=== PATIENT | female | born 1930 | race Caucasian/White ===

== ENCOUNTER 2017-02-15 13:24 | Observation (INO) ==
[2017-02-15] MEDS ORDERED: *HR* Propofol 500 MG/50 ML BOTTLE IVP ONE ×2 (14:33→14:34)
[2017-02-15] MEDS ORDERED: 0.9 % Sodium Chloride 1,000 ML ONE (14:55)
--- NOTE | 2017-02-15 16:05 | Emergency Department Note ---
Disposition Clinical Impression: Hip dislocation, left Qualifiers: Encounter type: initial encounter Qualified Code(s): S73.005A - Unspecified dislocation of left hip, initial encounter Disposition: Admitted As Inpatient Condition: Good General Adult HPI - General Chief complaint: ED Extremity Injury, Lower Stated complaint: hip pain Time Seen by Provider: 02/15/17 13:27 Source: patient, EMS Limitations: no limitations Nursing Notes Reviewed: Yes Vital Signs Reviewed: Yes - History of Present Illness HPI Narrative: Patient here for evaluation of hip injury. Patient was bending over will try and picking supervisor an object when her left hip popped. She has had a previous hip dislocation and is concerned that it is out again. Patient's leg is shortened and internally rotated. Patient has sensation intact. DP pulse palpable on that side. Patient had this happen previously in October and according to the ER physician about this and who is in the emergency department was a very difficult reduction. After discussing with Dr. Godfrey. He would like us to try to reduce it in the emergency department. Anesthesia was called and propofol was given. Multiple attempts as well as multiple variations of techniques were used and were unsuccessful. The case was discussed Dr. Godfrey and his PA evaluated the patient. Patient will be taken to the OR for closed reduction. They request admission to the hospital service as she may need further monitoring and possible surgery. Pain Scale: 2 - Related Data Home Medications Medication Instructions Recorded Confirmed Amlodipine Besylate 10 mg PO DAILY 02/15/17 02/15/17 Ascorbate Calcium [Vitamin C] 1,000 mg PO DAILY 02/15/17 02/15/17 Aspirin Enteric Coated [Aspirin EC] 81 mg PO DAILY 02/15/17 02/15/17 Atorvastatin Calcium [Lipitor] 20 mg PO HS 02/15/17 02/15/17 Cholecalciferol (D-3) [Vitamin D] 1,000 unit PO DAILY 02/15/17 02/15/17 Cilostazol 50 mg PO BID 02/15/17 02/15/17 Cyanocobalamin (Vitamin B-12) 500 mcg PO DAILY 02/15/17 02/15/17 [Vitamin B-12] Enalapril Maleate [Vasotec] 20 mg PO BID 02/15/17 02/15/17 Loratadine [Claritin] 10 mg PO DAILY PRN 02/15/17 02/15/17 Metoprolol Succinate 200 mg PO DAILY 02/15/17 02/15/17 [place]-3 Acid Ethyl Esters [Lovaza] 2 gm PO BID 02/15/17 02/15/17 Saline Nasal [place] [[place] Nasal 2 spray NS BID PRN 02/15/17 02/15/17 [place]] Sitagliptin Phos/Metformin HCl 1 each PO BID 02/15/17 02/15/17 [Janumet 50-1,000 mg Tablet] hydroCHLOROthiazide 25 mg PO DAILY 02/15/17 02/15/17 [Hydrochlorothiazide] Allergies Allergy/AdvReac Type Severity Reaction Status Date / Time No Known Allergies Allergy Verified 11/02/16 16:07 Review of Systems: CONSTITUTIONAL: No weight loss, fever, chills, weakness or fatigue. HEENT: Eyes: No visual changes. Ears, Nose, Throat: No hearing loss, difficulty talking or unable to swallow. SKIN: No rash or itching. CARDIOVASCULAR: No chest pain, chest pressure or chest discomfort. No palpitations or edema. RESPIRATORY: No shortness of breath, cough or sputum. GASTROINTESTINAL: No anorexia, nausea, vomiting or diarrhea. No abdominal pain or blood. GENITOURINARY: No burning on urination or hematuria. NEUROLOGICAL: No headache, dizziness, syncope, paralysis, ataxia, numbness or tingling in the extremities. No change in bowel or bladder control. MUSCULOSKELETAL: Hip pain and deformity Past Medical History - Past Medical History Medical history: Reports: cancer, diabetes, hyperlipidemia, hypertension - Social History Smoking Status: Never smoker Alcohol use: Reports: none Drug use: Reports: none Physical Exam General appearance: NAD, conversant Eyes: anicteric sclerae, moist conjunctivae; PERRL HENT: Atraumatic; oropharynx clear with moist mucous membranes and no mucosal ulcerations Neck: Normal inspection; Trachea midline; FROM, supple Lungs: CTA, with normal respiratory effort and no intercostal retractions CV: RRR, no MRGs Abdomen: Soft, non-tender; no rebound or gaurding Extremities: Left hip is internally rotated and shortened. Neurovascularly intact distally. Skin: Normal temperature; no rash, ulcers or lesions Psych: Appropriate mood and affect Neuro: alert and oriented to person, place and time - General Limitations: no limitations General appearance: alert Course - Consultations Consultation #1: Dr. Godfrey would like to admit the patient to the hospital service and do a closed reduction of the hip in the OR. Consultation #2: Dr. Landaverde. Patient accepts for admission. Vital Signs Temperature 98.3 F 02/15/17 13:26 Pulse Rate 100 02/15/17 13:26 Respiratory Rate 18 02/15/17 13:26 Blood Pressure 147/80 02/15/17 13:26 O2 Sat by Pulse Oximetry 94 02/15/17 13:26 Temperature 98.3 F 02/15/17 13:26 Pulse Rate 98 02/15/17 16:59 Respiratory Rate 16 02/15/17 17:04 Blood Pressure 132/84 02/15/17 17:04 O2 Sat by Pulse Oximetry 92 02/15/17 16:59 Oxygen Delivery Oxygen Delivery [1525] Nasal Cannula Oxygen Delivery [1520] Nasal Cannula Oxygen Delivery [1518] Nasal Cannula Oxygen Delivery [1512] Nasal Cannula Oxygen Delivery [1510] Nasal Cannula Oxygen Delivery [1508] Nasal Cannula Oxygen Delivery [1504] Nasal Cannula Oxygen Delivery [1501] Nasal Cannula Oxygen Delivery [1459] Nasal Cannula Oxygen Delivery [1453] Non Rebreather Mask Oxygen Delivery Nasal Cannula Procedures - Orthopedic Joint Reduction Joint #1 Consent Obtained: written consent Time Out Performed: Yes Side: left Joint Reduction Location: hip ASA Classification: CLASS III-Severe systemic disease Analgesia: procedural sedation Shoulder Technique Used (if applicable): traction/counter-traction, other ( [place] Post-reduction neuro exam: intact Post-reduction vascular: intact Post Reduction X-Ray Obtained: Yes Post Reduction X-Ray Results: not reduced Splint Applied: No Patient Tolerated Procedure: well, other (Unsuccessful) Additional Comments: I was at the bedside the entire procedure time. Patient was given propofol for sedation purposes. I thought we were able to get it reduced at one point but the hip came out of the anatomical alignment again. She will be sent to the OR to have a closed reduction done in the operating room. She tolerated the procedure well otherwise here. Anesthesia was also at bedside for observation purposes as well. I also tried to reduce this left hip dislocation but was unsuccessful as well. - Procedural Sedation Indication: fracture/dislocation reduction Dietary Status: NPO 6 hours prior to procedure If known; time of last PO intake: 07:00 H&P (including ROS) documented in medical record: Yes Previous reaction to sedatives/anesthetics: No Dentition: No loose teeth or bridges, full dentition, poor dentition, dentures removed Possible difficult airway: Yes Difficult Airway; If yes,: Limited ability to open mouth, Macroglossia, History of Obstructive Sleep Apnea, Neck limited ROM, Morbid obesity, Enlarged neck circumference, short neck ASA Classification: CLASS III-Severe systemic disease Plan of Care: Pt appropriate candidate for procedure/moderate/conscious sedation , Risks/benefits of procedure/sedation discussed w/ patient/family, If not NPO; Risk of intake outweiged by necessity to perform procedure Preparation: deburring and tooling machine operator applied, pulse oximeter, capnometry used, supplemental O2 applied, reversal agents at bedside, suction/airway equipment at bedside, IV secured IV Propofol Dose (mgs): 120 (60 mg and then another 60 mg) Patient Tolerated Procedure: well, no complications Complications: none Interventions: oxygen applied Medical Decision Making - Lab Data Result diagrams: 02/15/17 16:21 02/15/17 16:21 Lab Results 02/15/17 02/15/17 02/15/17 Range/Units 16:21 16:21 16:37 WBC 12.9 H (4.3-11.1) K/mcL RBC 4.71 (3.82-4.97) M/mcL Hgb 14.1 (11.5-15.4) g/dL Hct 41.0 (35.3-44.9) % MCV 87.0 (83.0-100.0) fL MCH 29.9 (28.0-33.3) pg MCHC 34.4 (31.6-35.5) g/dL RDW 12.6 (11.5-14.5) % Plt Count 276 (140-400) K/mcL MPV 9.0 L (9.4-12.4) fL Immature Gran % 0.5 (0-4) % Seg Neutrophils % 81.5 % Lymphocytes % 11.5 % Monocytes % 6.0 % Eosinophils % 0.2 % Basophils % 0.3 % Neutrophils # 10.5 H (1.6-8.9) K/mcL Lymphocytes # 1.5 (0.6-4.6) K/mcL Monocytes # 0.8 (0.0-1.3) K/mcL Eosinophils # 0.0 (0.0-0.6) K/mcL Basophils # 0.0 (0.0-0.2) K/mcL Sodium 140 (136-145) mEq/L Potassium 3.1 L (3.5-4.5) mEq/L Chloride 102 (98-109) mEq/L Carbon Dioxide 26 (19-29) mEq/L BUN 18 (7-20) mg/dL Creatinine 0.84 (0.57-1.11) mg/dL Est GFR ( Amer) > 60 (> 60) Est GFR (Non-Af Amer) > 60 (> 60) BUN/Creatinine Ratio 21 (6-26) Glucose 149 H (70-99) mg/dL Calculated Osmolality 295 (280-300) Calcium 9.2 (8.6-10.8) mg/dL Urine Color Yellow (Yellow) Urine Clarity Clear (Clear) Urine pH 6.5 (5.0-8.0) pH Units Ur Specific [place] 1.016 (1.010-1.025) Urine Protein 100 H (Neg-Trace) mg/dL Urine Glucose (UA) 100 H (Normal) mg/dL Urine Ketones Trace H (Negative) mg/dL Urine Blood Small H (Negative) Urine Nitrite Negative (Negative) Urine Bilirubin Negative (Negative) Urine Urobilinogen Normal (Normal) mg/dL Ur Leukocyte Esterase Negative (Negative) Urine Microscopic RBC 5-15 H (0-3) per hpf Urine Microscopic WBC 0-3 (0-3) per hpf Ur Squamous Epith Cells None Seen (None-Few) per lpf Urine Bacteria None Seen (None-Few) per hpf Hyaline Casts None Seen (None-Few) per lpf Ur Culture Indicated? NO (NO) Attestation Statement - Attestation Attestation: I examined this patient and my medical decision-making was reviewed with the PROJECT CONTROL ANALYST/PA/Advanced Practice Nurse/Resident Physician. I agree with the documented findings, disposition and treatment plan as described except to the extent set forth below.
--- NOTE | 2017-02-15 16:17 | Orthopedic Consult Note ---
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 Discussed with , patient consented for a Left hip closed reduction today with . Consent was signed and discussed with patient and her daughter. Due to her previous hip dislocation in October, and lack of trauma or reported falls, risks of the hip not reducing were discussed. If further management is needed, we will further discuss with the patient and her family at a later time. Risks were discussed and reviewed with the patient and family. NPO, last meal was at 7AM CBC, Bmp needed. PT/INR. Plan to admit for observation. Qualifiers: Encounter type: initial encounter Qualified Code(s): T84.029A - Dislocation of unspecified internal joint prosthesis, initial encounter; Z96.649 - Presence of unspecified artificial hip joint History of Present Illness Chief complaint: Recurrent Left hip Dislocation HPI: Ms. Gallegos is a 86 year old female, seen and evaluted in ED. Reported to [facility] for Left hip pain. She states she was sitting on a chair, bent over and felt a pop in her Left hip. Past Med Surg Social Fam HX - Past Medical History Medical history: cancer, diabetes, hyperlipidemia, hypertension - Social History Smoking Status: Never smoker Alcohol use: none Drug use: none Medications and Allergies Allergies No Known Allergies Allergy (Verified 11/02/16 16:07) ROS unobtainable: other All Systems Reviewed: A 10-system review of systems was performed and is negative for pertinent findings except as documented above in the HPI. - Constitutional Constitutional: as per HPI, no fever(s), no frequent falls - Cardiovascular Cardiovascular: as per HPI, no chest pain, no syncope - Respiratory Respiratory: as per HPI, no cough, no dyspnea, no wheezing - Musculoskeletal Musculoskeletal: as per HPI, abnormal gait, limited range of motion, no numbness , no tingling Physical Exam - Constitutional Vitals: Temp Pulse Resp BP Pulse Ox 98.3 F 95 16 122/58 97 02/15/17 13:26 02/15/17 15:57 02/15/17 15:57 02/15/17 15:57 02/15/17 15:57 - Hip left Gait: other (unable to WB; LLE appears shorted and IR) Tenderness with palpation: anterior, posterior ROM: extension: abnormal ROM: flexion: abnormal ROM: abduction: abnormal ROM: adduction: abnormal ROM: internal rotation: abnormal ROM: external rotation: abnormal Results - Labs Labs: All other labs normal. - Diagnostic results Hip x-ray: report reviewed, image reviewed Hip AP/Lateral x-ray: report reviewed, image reviewed Consult Discharge Plan - Plan Referrals: Winnie Holden DO [Primary Care Provider] -
--- NOTE | 2017-02-15 16:31 | Internal Med History&Physical ---
Date of Encounter: 02/16/17 Time of Encounter: 16:29 Assessment and Plan (1) Recurrent dislocation of hip joint prosthesis Current visit: Yes Status: Acute recurrent dislocation to be surgically corrected by DR. Godfrey will follow post op. unsuccessful attempt for correction at ED. Qualifiers: Encounter type: initial encounter Qualified Code(s): T84.029A - Dislocation of unspecified internal joint prosthesis, initial encounter; Z96.649 - Presence of unspecified artificial hip joint (2) HTN (hypertension) Current visit: Yes Status: Acute BP stable, will conitnue home meds Qualifiers: Hypertension type: essential hypertension Qualified Code(s): I10 - Essential (primary) hypertension (3) Diabetes Current visit: Yes Status: Acute will start on sliding scale for today. will hold all oral anti hypoglycemics and not start long acting insulin for now. monitor fsg Qualifiers: Qualified Code(s): E11.9 - Type 2 diabetes mellitus without complications (4) Hyperlipidemia Current visit: Yes Status: Acute continue home meds Qualifiers: Hyperlipidemia type: unspecified Qualified Code(s): E78.5 - Hyperlipidemia , unspecified Internal Medicine - H&P: HPI Chief complaint: hip fracture Admitted From: Home Plans for Post Hospital Care: Transfer Inp Rehab Fac History of present illness: Ms. Gallegos is a 86 year old female wth PMH of HTN, DM and HLD. Patient here for evaluation of hip injury. Patient was bending over to try and excelsior picker an object when her left hip popped. She has had a previous hip dislocation . Patient's leg is shortened and internally rotated. Patient has sensation intact. Patient had this happen previously in October. After discussing with Dr. Godfrey, they tried to reduce it in the emergency department. Multiple attempts as well as multiple variations of techniques were used and were unsuccessful. The case was discussed Dr. Godfrey and his PA evaluated the patient. Patient will be taken to the OR for closed reduction. They request admission to the hospital service as she may need further monitoring and possible surgery. at the time of my assesment, faith denies much pain. Past Med Surg Social Fam HX - Past Medical History Medical history: cancer, diabetes, hyperlipidemia, hypertension - Social History Smoking Status: Never smoker Alcohol use: none Drug use: none Internal Medicine - H&P: Meds Amlodipine Besylate 10 mg PO DAILY 02/15/17 [History] Ascorbate Calcium [Vitamin C] 1,000 mg PO DAILY 02/15/17 [History] Aspirin Enteric Coated [Aspirin EC] 81 mg PO DAILY 02/15/17 [History] Atorvastatin Calcium [Lipitor] 20 mg PO HS 02/15/17 [History] Cholecalciferol (D-3) [Vitamin D] 1,000 unit PO DAILY 02/15/17 [History] Cilostazol 50 mg PO BID 02/15/17 [History] Cyanocobalamin (Vitamin B-12) [Vitamin B-12] 500 mcg PO DAILY 02/15/17 [History] Enalapril Maleate [Vasotec] 20 mg PO BID 02/15/17 [History] Loratadine [Claritin] 10 mg PO DAILY PRN 02/15/17 [History] Metoprolol Succinate 200 mg PO DAILY 02/15/17 [History] [place]-3 Acid Ethyl Esters [Lovaza] 2 gm PO BID 02/15/17 [History] Saline Nasal [place] [[place] Nasal [place]] 2 spray NS BID PRN 02/15/17 [History] Sitagliptin Phos/Metformin HCl [Janumet 50-1,000 mg Tablet] 1 each PO BID [History] hydroCHLOROthiazide [Hydrochlorothiazide] 25 mg PO DAILY 02/15/17 [History] Allergies No Known Allergies Allergy (Verified 11/02/16 16:07) All Systems PM: A 10-system review of systems was performed and is negative for pertinent findings except as documented above in the HPI. - Constitutional Constitutional: no chills, no fever(s), no night sweats - EENT Eyes: no change in vision, no discharge, no pain, no photophobia Ears: no ear discharge, no ear pain, no tinnitus Nose, mouth and throat: no dysphagia, no nasal discharge, no neck pain, no sore throat - Cardiovascular Cardiovascular ROS IM: no chest pain, no diaphoresis, no dyspnea, no lightheadedness, no palpitations, no syncope - Respiratory Respiratory: no cough, no dyspnea, no wheezing, no excessive phlegm production - Gastrointestinal Gastrointestinal: no abdominal pain, no diarrhea, no hematemesis, no hematochezia, no melena, no nausea, no vomiting - Constitutional Vitals: Temp Pulse Resp BP Pulse Ox 98.3 F 95 16 122/58 97 02/15/17 13:26 02/15/17 15:57 02/15/17 15:57 02/15/17 15:57 02/15/17 15:57 General appearance: Present: A&O X 3, no acute distress Exam: exam could not be completed as patient was being wheeled down to surgery Internal Med - H&P Results - Labs CBC & Chem 7: 02/16/17 08:30 02/16/17 08:30 - Impressions ITS Impressions Hip X-Ray 02/15/17 13:31 IMPRESSION: Dislocation of the left hip arthroplasty D/ / Bull Ontiveros MD / Bull Ontivreos MD Interpreting Provider: Bull Ontiveros MD Hip X-Ray 02/15/17 15:31 IMPRESSION: Unchanged dislocation. D/ / Bull Ontiveros MD / Bull Ontiveros MD Interpreting Provider: Bull Ontiveros MD
[2017-02-15 16:39] LABS: Basophils % 0.3 %; Eosinophils % 0.2 %; Hemoglobin 14.1 g/dL (11.5-15.4); Immature Granulocytes % 0.5 % (0-4); Lymphocytes # 1.5 K/mcL (0.6-4.6); Lymphocytes % 11.5 %; Mean Corpuscular HGB Conc 34.4 g/dL (31.6-35.5); Mean Corpuscular Hemoglobin 29.9 pg (28.0-33.3); Monocytes # 0.8 K/mcL (0.0-1.3); Neutrophils # 10.5 K/mcL (1.6-8.9); Platelet Count 276 K/mcL (140-400); Red Blood Count 4.71 M/mcL (3.82-4.97); Red Cell Distribution Width 12.6 % (11.5-14.5); Segmented Neutrophils % 81.5 %
[2017-02-15] MEDS ORDERED: Naloxone 0.4 MG/ML INJ IVP PRN ×2 (16:47→18:58)
[2017-02-15] MEDS ORDERED: *HR* Morphine 2 MG/ML SYRINGE IVP PRN ×2 (16:47→18:58)
[2017-02-15] MEDS ORDERED: Ketorolac 30 MG/ML VIAL IVP PRN ×2 (16:47→18:58)
[2017-02-15 16:50] LABS: Bilirubin,Urine Negative (Negative); Blood,Urine Small (Negative); Clarity,Urine Clear (Clear); Color,Urine Yellow (Yellow); Glucose,Urine (UA) 100 mg/dL (Normal); Ketones,Urine Trace mg/dL (Negative); Leukocyte Esterase,Urine Negative (Negative); Nitrite,Urine Negative (Negative); PH,Urine 6.5 pH Units (5.0-8.0); Protein,Urine 100 mg/dL (Neg-Trace); Specific Gravity,Urine 1.016 (1.010-1.025); Urobilinogen,Urine Normal (Normal)
[2017-02-15] MEDS ORDERED: D5% in Water 1,000 ML IVC PRN ×2 (16:50→18:58)
[2017-02-15] MEDS ORDERED: *HR* Dextrose 50 % in Water (Syg) 50 ML SYRINGE IVP PRN ×2 (16:50→18:58)
[2017-02-15] MEDS ORDERED: Dextrose Gel 15 GM PO PRN ×4 (16:50→18:58)
[2017-02-15 16:52] LABS: Bacteria,Urine None Seen per hpf (None-Few); Hyaline Casts,Urine None Seen per lpf (None-Few); Squamous Epithelial Cell,Urine None Seen per lpf (None-Few); WBC,Urine 0-3 per hpf (0-3)
[2017-02-15 16:53] LABS: BUN/Creatinine Ratio 21 (6-26); Blood Urea Nitrogen 18 mg/dL (7-20); Calcium 9.2 mg/dL (8.6-10.8); Carbon Dioxide 26 mEq/L (19-29); Chloride 102 mEq/L (98-109); Glucose 149 mg/dL (70-99); Osmolality,Calculated 295 (280-300); Potassium 3.1 mEq/L (3.5-4.5); Sodium 140 mEq/L (136-145); eGFR For African Americans > 60 (> 60); eGFR For Non-African Americans > 60 (> 60)
--- NOTE | 2017-02-15 16:58 | Anesthesia Evaluation PreOp ---
Date of Encounter: 02/15/17 Time of Encounter: 16:56 - Past History Planned Operation: l hip closed redn Cardiac History: HTN, Hyperlipidemia Pulmonary History: DENIZ Dx CASH APPLICATIONS CLERK History: Denies Any Significant HX Other Medical History: Diabetes Type II, Other (h/o breast ca) Anesthesia History: No Prior Anesthetic Complications, Past Anesthesia (appy, l mastectomy) Alcohol Use: none Drug use: none Medications and Allergies Amlodipine Besylate 10 mg PO DAILY 02/15/17 [History] Ascorbate Calcium [Vitamin C] 1,000 mg PO DAILY 02/15/17 [History] Aspirin Enteric Coated [Aspirin EC] 81 mg PO DAILY 02/15/17 [History] Atorvastatin Calcium [Lipitor] 20 mg PO HS 02/15/17 [History] Cholecalciferol (D-3) [Vitamin D] 1,000 unit PO DAILY 02/15/17 [History] Cilostazol 50 mg PO BID 02/15/17 [History] Cyanocobalamin (Vitamin B-12) [Vitamin B-12] 500 mcg PO DAILY 02/15/17 [History] Enalapril Maleate [Vasotec] 20 mg PO BID 02/15/17 [History] Loratadine [Claritin] 10 mg PO DAILY PRN 02/15/17 [History] Metoprolol Succinate 200 mg PO DAILY 02/15/17 [History] [place]-3 Acid Ethyl Esters [Lovaza] 2 gm PO BID 02/15/17 [History] Saline Nasal [place] [[place] Nasal [place]] 2 spray NS BID PRN 02/15/17 [History] Sitagliptin Phos/Metformin HCl [Janumet 50-1,000 mg Tablet] 1 each PO BID [History] hydroCHLOROthiazide [Hydrochlorothiazide] 25 mg PO DAILY 02/15/17 [History] Allergies No Known Allergies Allergy (Verified 11/02/16 16:07) - Meds/Allergy Pre-op Review Medications Reviewed: Yes Allergies Reviewed: Yes Beta Blockers on Current Med List: Yes If Beta Blockers taken, Date/Time (Last Dose taken): metoprolol 02/14 2200 Anesthesia Results - Labs 02/15/17 16:21 02/15/17 16:21 - Imaging EKG: report reviewed (sr, anthony) Anesthesia Exam Vital Signs/O2 Sat/Glucose, Most Current Temp Pulse Pulse Pulse Pulse Pulse Pulse 02/15/17 16:42 02/15/17 15:57 95 02/15/17 14:53 98 99 97 99 98 02/15/17 14:46 98 02/15/17 13:26 98.3 F 100 Pulse Pulse Pulse Pulse Pulse Resp Resp 02/15/17 16:42 16 02/15/17 15:57 16 02/15/17 14:53 96 102 96 93 94 18 02/15/17 14:46 18 02/15/17 13:26 18 Resp Resp Resp Resp Resp Resp Resp 02/15/17 16:42 02/15/17 15:57 02/15/17 14:53 18 16 16 16 16 18 18 02/15/17 14:46 02/15/17 13:26 BP BP BP BP BP BP BP 02/15/17 16:42 132/84 02/15/17 15:57 122/58 02/15/17 14:53 146/81 140/85 140/77 127/75 128/73 128/69 02/15/17 14:46 146/81 02/15/17 13:26 147/80 BP Pulse Ox 02/15/17 16:42 02/15/17 15:57 97 02/15/17 14:53 131/74 02/15/17 14:46 95 02/15/17 13:26 94 Height: 1.55 Weight: 91 NPO (# of Hours): >8 - HEENT Pupil (Motor): Pupils equal, EOMI Mallampati: II Teeth: Edentulous Oral Opening: Greater than 3 - CASH APPLICATIONS CLERK LOC: Oriented CASH APPLICATIONS CLERK Motor: Normal RUE, Normal LUE, Normal RLE, Normal LLE, Normal Face CASH APPLICATIONS CLERK Sensory: Normal: RUE, LUE, RLE, LLE, Face - Cardiac Rhythm: Regular Murmur: None - Pulmonary Breath Sounds: bilateral Clear Respiratory Effort: Symmetrical Anesthesia Assess/Plan ASA Score: 3 Modified [place] Scale for Level of Consciousness: Cooperative, oriented, and tranquil Anesthetic Plan: General Monitoring Plan: Standard Monitors Recovery Plan: PACU
[2017-02-15] MEDS ORDERED: Insulin LISPRO 300 UNITS/3 ML VIAL SQ SCH ×2 (17:00→21:00)
[2017-02-15] MEDS ORDERED: *HR* Heparin 5,000 UNIT/ML VIAL SQ SCH (17:00)
[2017-02-15] MEDS ORDERED: 0.9 % Sodium Chloride 1,000 ML IVC SCH ×2 (17:00→18:58)
[2017-02-15] MEDS ORDERED: Acetaminophen IV 1,000 MG/100 ML INFUS..BTL ONE (17:13)
[2017-02-15] MEDS ORDERED: Famotidine 20 MG/2 ML VIAL ONE (17:13)
[2017-02-15] MEDS ORDERED: Ringers Solution, Lactated 1,000 ML IVC SCH ×2 (17:15→18:58)
[2017-02-15] MEDS ORDERED: *HR* Propofol 200 MG/20 ML VIAL IVP ONE (17:22)
[2017-02-15] MEDS ORDERED: Lidocaine -MPF 2% 2 ML VIAL ONE (17:22)
[2017-02-15] MEDS ORDERED: Ondansetron 4 MG/2 ML VIAL ONE (17:22)
--- NOTE | 2017-02-15 17:53 | Orthopedic Operative Note ---
Date of procedure: 02/15/17 Pre-op diagnosis: Dislocation left total hip replacement Post-op diagnosis: same Procedure: Procedure: Closed reduction left total hip replacement Estimated blood loss: 0 Indication: Dislocation left total hip Procedure: Patient brought to the operating room placed on the operating room table after general anesthesia was administered a closed reduction was performed of the left hip. This was confirmed with x-ray. Reduction was found to be stable. Patient placed in a postoperative brace extubated and transferred to recovery room stable condition. Anesthesia: GETA Surgeon: Toan Godfrey Condition: stable Disposition: PACU
[2017-02-15] MEDS ORDERED: *HR* FentaNYL (PF) 100 MCG/2 ML VIAL ONE (17:56)
--- NOTE | 2017-02-15 18:19 | Anesthesia Evaluation Post Op ---
Date of Encounter: 02/15/17 Time of Encounter: 18:25 - Vital Signs Vital Signs: Vital Signs/O2 Sat/Glucose, Most Current Pulse Pulse Pulse Pulse Pulse Pulse Pulse 02/15/17 17:04 02/15/17 16:59 98 02/15/17 16:42 02/15/17 15:57 95 02/15/17 14:53 98 99 97 99 98 96 02/15/17 14:46 98 Pulse Pulse Pulse Pulse Resp Resp Resp 02/15/17 17:04 16 02/15/17 16:59 16 02/15/17 16:42 16 02/15/17 15:57 16 02/15/17 14:53 102 96 93 94 18 18 02/15/17 14:46 18 Resp Resp Resp Resp Resp Resp BP 02/15/17 17:04 132/84 02/15/17 16:59 145/77 02/15/17 16:42 132/84 02/15/17 15:57 122/58 02/15/17 14:53 16 16 16 16 18 18 02/15/17 14:46 146/81 BP BP BP BP BP BP BP 02/15/17 17:04 02/15/17 16:59 02/15/17 16:42 02/15/17 15:57 02/15/17 14:53 146/81 140/85 140/77 127/75 128/73 128/69 131/74 02/15/17 14:46 Pulse Ox 02/15/17 17:04 02/15/17 16:59 92 02/15/17 16:42 02/15/17 15:57 97 02/15/17 14:53 02/15/17 14:46 95 - Lungs Lungs: Clear Ascult./Percussion - Airway Airway: Non-obstructed - Cardiovascular Regular Rate - Mental Status Mental Status: Alert & Oriented, Answers Appropriately - Pain Pain Scale: 0 - Nausea Vomiting Nausea Vomiting: Not Present - Hydration Hydration: Ice chips - Discharge PostOp Status: Transfer Patient to floor
[2017-02-15] MEDS ORDERED: MOM Conc 10 ML UD.LIQ PO PRN (18:58)
[2017-02-15] MEDS ORDERED: Temazepam 15 MG CAPSULE PO PRN (18:58)
[2017-02-15] MEDS ORDERED: Sennosides 8.6 MG TABLET PO PRN (18:58)
[2017-02-15] MEDS ORDERED: Ondansetron 4 MG/2 ML VIAL IVP PRN (18:58)
[2017-02-15] MEDS ORDERED: Lisinopril 20 MG TABLET PO SCH (21:00)
[2017-02-15] MEDS: Lisinopril 20 MG TABLET PO SCH (21:28)
[2017-02-15] MEDS: Insulin LISPRO 300 UNITS/3 ML VIAL SQ SCH (21:28)
[2017-02-16] MEDS ORDERED: Acetaminophen 325 MG TABLET PO PRN (03:26)
[2017-02-16 05:40] LABS: Hematocrit 35.6 % (35.3-44.9)
[2017-02-16] MEDS: *HR* Heparin 5,000 UNIT/ML VIAL SQ SCH ×2 (06:03→16:26)
[2017-02-16] MEDS: Lisinopril 20 MG TABLET PO SCH ×2 (08:17→21:15)
[2017-02-16] MEDS: amLODIPine 5 MG TABLET PO SCH (08:17)
[2017-02-16] MEDS: Aspirin Enteric Coated 81 MG Tablet PO SCH (08:17)
[2017-02-16] MEDS: Ascorbic Acid 500 MG TABLET PO SCH ×2 (08:18→16:26)
[2017-02-16] MEDS: Metoprolol XL (24 HR) Succ 50 MG TAB.ER.24H PO SCH (08:18)
[2017-02-16] MEDS: Multivit/Ca/Min/Fe/FA 1 TAB TABLET PO SCH (08:18)
[2017-02-16] MEDS: Insulin LISPRO 300 UNITS/3 ML VIAL SQ SCH ×4 (08:22→21:14)
[2017-02-16 08:44] LABS: Basophils % 0.2 %; Eosinophils # 0.1 K/mcL (0.0-0.6); Eosinophils % 0.7 %; Hematocrit 36.6 % (35.3-44.9); Hemoglobin 12.4 g/dL (11.5-15.4); Immature Granulocytes % 0.4 % (0-4); Lymphocytes # 2.4 K/mcL (0.6-4.6); Lymphocytes % 19.6 %; Mean Corpuscular HGB Conc 33.9 g/dL (31.6-35.5); Mean Corpuscular Hemoglobin 29.7 pg (28.0-33.3); Mean Corpuscular Volume 87.6 fL (83.0-100.0); Mean Platelet Volume 8.6 fL (9.4-12.4); Monocytes # 1.2 K/mcL (0.0-1.3); Monocytes % 9.8 %; Neutrophils # 8.4 K/mcL (1.6-8.9); Platelet Count 257 K/mcL (140-400); Red Blood Count 4.18 M/mcL (3.82-4.97); Red Cell Distribution Width 12.7 % (11.5-14.5); Segmented Neutrophils % 69.3 %
[2017-02-16] MEDS ORDERED: amLODIPine 5 MG TABLET PO SCH (09:00)
[2017-02-16] MEDS ORDERED: Metoprolol XL (24 HR) Succ 50 MG TAB.ER.24H PO SCH (09:00)
[2017-02-16] MEDS ORDERED: Aspirin Enteric Coated 81 MG Tablet PO SCH (09:00)
[2017-02-16 09:04] LABS: BUN/Creatinine Ratio 13 (6-26); Blood Urea Nitrogen 11 mg/dL (7-20); Calcium 8.7 mg/dL (8.6-10.8); Carbon Dioxide 27 mEq/L (19-29); Chloride 100 mEq/L (98-109); Glucose 148 mg/dL (70-99); Osmolality,Calculated 284 (280-300); Potassium 2.7 mEq/L (3.5-4.5); Sodium 136 mEq/L (136-145); eGFR For African Americans > 60 (> 60); eGFR For Non-African Americans > 60 (> 60)
--- NOTE | 2017-02-16 16:30 | Internal Med Progress Note ---
Date of Encounter: 02/16/17 Time of Encounter: 16:28 - Assessment and plan (1) Recurrent dislocation of hip joint prosthesis Current Visit: Yes Status: Acute Assessment and plan: s/p Closed reduction left total hip replacement, POD#1 doing well, post op care as per ortho Qualifiers: Encounter type: initial encounter Qualified Code(s): T84.029A - Dislocation of unspecified internal joint prosthesis, initial encounter; Z96.649 - Presence of unspecified artificial hip joint (2) HTN (hypertension) Current Visit: Yes Status: Acute Assessment and plan: stable continue home meds Qualifiers: Hypertension type: essential hypertension Qualified Code(s): I10 - Essential (primary) hypertension (3) Diabetes Current Visit: Yes Status: Acute Qualifiers: Qualified Code(s): E11.9 - Type 2 diabetes mellitus without complications (4) Hyperlipidemia Current Visit: Yes Status: Acute Qualifiers: Hyperlipidemia type: unspecified Qualified Code(s): E78.5 - Hyperlipidemia , unspecified (5) HCAP (healthcare-associated pneumonia) Current Visit: Yes Status: Acute Assessment and plan: patient has temp of 100.9 with leucocytosis, c/o cough and CXR shows apical questionable pneumonia given GA and intubation, will start emperical zosyn for now. observe today repeat cbc. - Subjective Interval history: patient seen at the bedside, POD #1, s/p Closed reduction left total hip replacement. doing well post op, c/o cough , had temp of 100.9 last night and has leucocytosis. - Constitutional Vitals: Temp Pulse Resp BP Pulse Ox 98.8 F 59 16 143/75 94 02/16/17 11:45 02/16/17 11:45 02/16/17 11:45 02/16/17 11:45 02/16/17 11:45 General appearance: Present: A&O X 3, no acute distress Exam: neck- supple chest- b/l clear, no added sounds CVS- s1 and s2, no mr//g abd-soft, non tender, bs are present ext- no edema Internal Medicine: Result - Labs CBC & Chem 7: 02/16/17 08:30 02/16/17 08:30 Labs: Short CBC 02/16/17 02/16/17 Range/Units 04:58 08:30 WBC 12.1 H (4.3-11.1) K/mcL Hgb 12.0 D 12.4 (11.5-15.4) g/dL Hct 35.6 36.6 (35.3-44.9) % Plt Count 257 (140-400) K/mcL Neutrophils # 8.4 (1.6-8.9) K/mcL BMP 02/16/17 08:30 Sodium 136 Potassium 2.7 L Chloride 100 Carbon Dioxide 27 BUN 11 Creatinine 0.85 Glucose 148 H Calcium 8.7 - Impressions Impressions Hip X-Ray 02/15/17 17:40 IMPRESSION: The left hip arthroplasty is now located. D/ / 02/15/2017 19:25:07 Renato Flower MD / trupti Interpreting Provider: Renato Flower MD Chest X-Ray 02/16/17 08:02 IMPRESSION: Question of a pneumonia in the apical segment of the left lower lobe. Short-term radiographic follow-up is recommended to document resolution. D/ / William Rausch MD / William Rausch MD Interpreting Provider: William Rausch MD - VTE Documentation of Mechanical Device: Intermittent pneumatic compression device Consult Discharge Plan - Plan Referrals: Winnie Holden DO [Primary Care Provider] -
--- NOTE | 2017-02-16 23:49 | Electrocardiograph Report ---
[place] [id number] Test Date: 2017-02-15 Pat Name: Allyn Gallegos Department: 102 Room: [facility] Gender: F Large [employer] Operator: Marco A : 1930 Requested By: Renato Booker Order Number: [id number] Reading MD: Martha Ramirez Measurements Intervals [place] Rate: 94 P: 70 TX: 197 QRS: 42 QRSD: 113 T: 47 QT: 387 QTc: 439 Interpretive Statements SINUS RHYTHM MODERATE INTRAVENTRICULAR CONDUCTION DELAY [110+ ms QRS DURATION] Electronically Signed On 02-16-2017 23:47:11 EDT by Martha Ramirez
[2017-02-17] MEDS: *HR* Heparin 5,000 UNIT/ML VIAL SQ SCH (05:08)
[2017-02-17 06:18] LABS: Basophils % 0.3 %; Eosinophils # 0.4 K/mcL (0.0-0.6); Hemoglobin 12.9 g/dL (11.5-15.4); Immature Granulocytes % 0.6 % (0-4); Lymphocytes # 2.7 K/mcL (0.6-4.6); Lymphocytes % 21.5 %; Mean Corpuscular HGB Conc 33.9 g/dL (31.6-35.5); Mean Corpuscular Hemoglobin 30.1 pg (28.0-33.3); Mean Corpuscular Volume 88.6 fL (83.0-100.0); Mean Platelet Volume 9.2 fL (9.4-12.4); Monocytes # 1.4 K/mcL (0.0-1.3); Monocytes % 10.9 %; Platelet Count 265 K/mcL (140-400); Red Blood Count 4.29 M/mcL (3.82-4.97); Red Cell Distribution Width 12.8 % (11.5-14.5); Segmented Neutrophils % 63.7 %
[2017-02-17 06:56] LABS: Calcium 9.1 mg/dL (8.6-10.8); Potassium 3.5 mEq/L (3.5-4.5)
[2017-02-17] MEDS: Insulin LISPRO 300 UNITS/3 ML VIAL SQ SCH ×2 (08:54→12:09)
[2017-02-17] MEDS: Multivit/Ca/Min/Fe/FA 1 TAB TABLET PO SCH (08:55)
[2017-02-17] MEDS: Aspirin Enteric Coated 81 MG Tablet PO SCH (08:55)
[2017-02-17] MEDS: Ascorbic Acid 500 MG TABLET PO SCH (08:55)
[2017-02-17] MEDS: amLODIPine 5 MG TABLET PO SCH (08:56)
[2017-02-17] MEDS: Lisinopril 20 MG TABLET PO SCH (08:56)
[2017-02-17] MEDS ORDERED: levoFLOXacin 750 MG TABLET PO SCH (09:00)
[2017-02-17] MEDS: Metoprolol XL (24 HR) Succ 50 MG TAB.ER.24H PO SCH (10:33)
[2017-02-17 11:36] VITALS: BP 127/68
--- NOTE | 2017-02-17 12:10 | Discharge Summary ---
Date of Encounter: 02/17/17 Time of Encounter: 12:08 - Discharge Diagnosis (1) Recurrent dislocation of hip joint prosthesis Priority: Primary Status: Acute Qualifiers: Encounter type: initial encounter Qualified Code(s): T84.029A - Dislocation of unspecified internal joint prosthesis, initial encounter; Z96.649 - Presence of unspecified artificial hip joint (2) HTN (hypertension) Priority: Secondary Status: Acute Qualifiers: Hypertension type: essential hypertension Qualified Code(s): I10 - Essential (primary) hypertension (3) Diabetes Priority: Secondary Status: Acute Qualifiers: Qualified Code(s): E11.9 - Type 2 diabetes mellitus without complications (4) Hyperlipidemia Priority: Secondary Status: Acute Qualifiers: Hyperlipidemia type: unspecified Qualified Code(s): E78.5 - Hyperlipidemia , unspecified (5) HCAP (healthcare-associated pneumonia) Priority: Primary Status: Acute - Discharge Medications Prescriptions: Ferrous Sulfate 325 mg PO BIDWM #60 tablet HYDROcodone/Acet 5/325 mg [[place] 5-325 mg] 1 tab PO Q6H PRN #20 tab PRN Reason: Pain levoFLOXacin [Levofloxacin] 750 mg PO DAILY #5 tablet Home Medications: Amlodipine Besylate 10 mg PO DAILY 02/15/17 [History] Ascorbate Calcium [Vitamin C] 1,000 mg PO DAILY 02/15/17 [History] Aspirin Enteric Coated [Aspirin EC] 81 mg PO DAILY 02/15/17 [History] Atorvastatin Calcium [Lipitor] 20 mg PO HS 02/15/17 [History] Cholecalciferol (D-3) [Vitamin D] 1,000 unit PO DAILY 02/15/17 [History] Cilostazol 50 mg PO BID 02/15/17 [History] Cyanocobalamin (Vitamin B-12) [Vitamin B-12] 500 mcg PO DAILY 02/15/17 [History] Enalapril Maleate [Vasotec] 20 mg PO BID 02/15/17 [History] Loratadine [Claritin] 10 mg PO DAILY PRN 02/15/17 [History] Metoprolol Succinate 200 mg PO DAILY 02/15/17 [History] [place]-3 Acid Ethyl Esters [Lovaza] 2 gm PO BID 02/15/17 [History] Saline Nasal [place] [[place] Nasal [place]] 2 spray NS BID PRN 02/15/17 [History] Sitagliptin Phos/Metformin HCl [Janumet 50-1,000 mg Tablet] 1 each PO BID [History] hydroCHLOROthiazide [Hydrochlorothiazide] 25 mg PO DAILY 02/15/17 [History] Ferrous Sulfate 325 mg PO BIDWM #60 tablet 02/17/17 [Rx] HYDROcodone/Acet 5/325 mg [[place] 5-325 mg] 1 tab PO Q6H PRN #20 tab 02/17/17 [Rx ] levoFLOXacin [Levofloxacin] 750 mg PO DAILY #5 tablet 02/17/17 [Rx] Allergies/Adverse Reactions: Allergies No Known Allergies Allergy (Verified 11/02/16 16:07) Date of admission: 02/15/17 16:42 Primary care physician: Winnie Holden DO Consults: 02/15/17 18:58 Consult to Nurse Navigator [CONS] Routine Comment: ortho navigator Consult to Occupational Therapy [CONS] Routine Comment: Evaluate, develop and implement POC Reason for Consult: total hip replacement Consult to Physical Therapy [CONS] Routine Comment: Evaluate, develop and implement POC Reason for Consult: total hip replacement Consult to Tier Lift Truck Operator [CONS] Routine Reason for SW Consult: post op joint replacement, possible home health needs RT Post Op Consult [CONS] Routine Discharging clinician: Jesus Alberto Mccullough Anticipated date of discharge: 02/17/17 - Patient Status Disposition: Home Health Service Condition: Fair Functional capacity at discharge: independent ambulation Overall status at discharge: patient is back to baseline - Discharge Instructions Follow Up With: Toan Godfrey MD [Partnered Physician] - 03/03/17 10:15 am Winnie Holden DO [Primary Care Provider] - (office will call you with appoinment time) Additional Instructions: WBAT tolerated. Follow hip precautions per physical therapy. Use walker with ambulation and progress off as tolerated. Take medications as prescribed. Go to scheduled follow-up appointment. - Diet and Activity Activity: as per physical therapy Diet: diabetic diet Interval History: Ms. [facility] 86 [facility] Patient here for evaluation of hip injury. Patient was bending over to try and oyster picker an object when her left hip popped. She has had a previous hip dislocation . Patient's leg is shortened and internally rotated. Patient has sensation intact. Patient had this happen previously in October. After discussing with Dr. Gofdrey, they tried to reduce it in the emergency department. Multiple attempts as well as multiple variations of techniques were used and were unsuccessful. The case was discussed Dr. Godfrey and his PA evaluated the patient. she was taken to the OR for closed reduction. she was admitted to the hospital for further monitoring. post surgery , seh was noted to have a temp of 100.9 with mild leucocytosis , CXR showed questionable pneumonia and she was also c/o some cough given surgery under GA,she was started on Zosyn emperically to cover HCAP. she is clincally better with no fever, will dc today with 5 days of oral antibiotics. she will f/u with her PCP as OP along with orthopedics Hospital course: Ms. Gallegos is a 86 year old female - Time Spent with Patient Total time spent providing and/or coordinating discharge services: - Constitutional Vitals: Temp Pulse Resp BP Pulse Ox 98.7 F 98 16 127/68 96 02/17/17 10:42 02/17/17 10:42 02/17/17 10:42 02/17/17 10:42 02/17/17 10:42 General appearance: Present: A&O X 3, no acute distress Exam: neck- supple chest- b/l clear, no added sounds CVS- s1 and s2, no mr//g abd-soft, non tender, bs are present ext- no edema - VTE Documentation of Mechanical Device: Intermittent pneumatic compression device
--- NOTE | 2017-02-17 12:12 | Physician Discharge Referral ---
Home Health/Hosp Referral Info Transfer to: Home Health Attending Provider: ladonna mcneil - Diagnosis (1) Recurrent dislocation of hip joint prosthesis Status: Acute (2) HTN (hypertension) Status: Acute (3) Diabetes Status: Acute (4) Hyperlipidemia Status: Acute (5) HCAP (healthcare-associated pneumonia) Status: Acute - Respiratory Orders Smoking Cessation: Smoking cessation has been advised. For more information, call the [employer] Tobacco Quit Line at 1-665-AEIN-NOW. - Diet/Nutrition Diet/Nutrition Orders: Regular, No Concentrated Sweets - Activity Activity Orders: Up ad heladio, Ambulate - Services Needed Following services are medically necessary services: Nursing, Home Health Aide, Physical Therapy, Occupational Therapy - Transfer Medications Prescriptions: Ferrous Sulfate 325 mg PO BIDWM #60 tablet HYDROcodone/Acet 5/325 mg [[place] 5-325 mg] 1 tab PO Q6H PRN #20 tab PRN Reason: Pain levoFLOXacin [Levofloxacin] 750 mg PO DAILY #5 tablet Home Medications: Amlodipine Besylate 10 mg PO DAILY 02/15/17 [History] Ascorbate Calcium [Vitamin C] 1,000 mg PO DAILY 02/15/17 [History] Aspirin Enteric Coated [Aspirin EC] 81 mg PO DAILY 02/15/17 [History] Atorvastatin Calcium [Lipitor] 20 mg PO HS 02/15/17 [History] Cholecalciferol (D-3) [Vitamin D] 1,000 unit PO DAILY 02/15/17 [History] Cilostazol 50 mg PO BID 02/15/17 [History] Cyanocobalamin (Vitamin B-12) [Vitamin B-12] 500 mcg PO DAILY 02/15/17 [History] Enalapril Maleate [Vasotec] 20 mg PO BID 02/15/17 [History] Loratadine [Claritin] 10 mg PO DAILY PRN 02/15/17 [History] Metoprolol Succinate 200 mg PO DAILY 02/15/17 [History] [place]-3 Acid Ethyl Esters [Lovaza] 2 gm PO BID 02/15/17 [History] Saline Nasal [place] [[place] Nasal [place]] 2 spray NS BID PRN 02/15/17 [History] Sitagliptin Phos/Metformin HCl [Janumet 50-1,000 mg Tablet] 1 each PO BID [History] hydroCHLOROthiazide [Hydrochlorothiazide] 25 mg PO DAILY 02/15/17 [History] Ferrous Sulfate 325 mg PO BIDWM #60 tablet 02/17/17 [Rx] HYDROcodone/Acet 5/325 mg [[place] 5-325 mg] 1 tab PO Q6H PRN #20 tab 02/17/17 [Rx ] levoFLOXacin [Levofloxacin] 750 mg PO DAILY #5 tablet 02/17/17 [Rx] Allergies/Adverse Reactions: Allergies No Known Allergies Allergy (Verified 11/02/16 16:07) Certification: Further, I certify that my clinical findings support that this patient is homebound (i.e. absences from home require considerable and taxing effort and are for medical reasons or gnosticist services or infrequently or short duration when for other reasons) because: Homebound Reason: Patient requires assistance of a person or device to safely leave home Attestation: My signature below is to certify that this patient is under my care and that I, or nurse practitioner, or a physician's academic affairs assistant working with me, has a face-to -face encounter with this patient.
[2017-02-17] MEDS ORDERED: Piperacillin/Tazobactam 3.375 GM in D5% in Water (Mini-Bag+) 100 ML IVPB SCH ×2 (16:25)
== END 2017-02-17 15:46 | disposition home health service (06) ==
LOC: EMEROO 13:24 → 3NENU 13:24
PROVIDERS: ADMIT Hospitalist; ATTEND Internal Medicine Endocrinology, Diabetes & Metabolism